=== PATIENT | female | born 1950 ===

== ENCOUNTER 2017-06-18 05:55 | Day surgery (SDC) | payer MEDICARE, OTHER ==
[~2017-06-18 05:55] MED LIST: ANCEF/STERILE WATER 2 GM/20 ML IV NR
[2017-06-18] MEDS ORDERED: LACTATED RINGERS 1,000 ML IV SCH (06:00)
[2017-06-18] MEDS ORDERED: VERSED IV NR (06:00)
[2017-06-18] MEDS ORDERED: PEPCID IV NR (06:00)
[2017-06-18] MEDS ORDERED: NACL BACTERIOSTATIC INFILTRATI ONE (06:39)
[2017-06-18] MEDS ORDERED: ADRENALIN IV ONE ×2 (06:39→08:18)
[2017-06-18] MEDS ORDERED: ZOFRAN IV PRN (07:13)
[2017-06-18] MEDS ORDERED: DILAUDID IV PRN (07:13)
[2017-06-18] MEDS ORDERED: XYLOCAINE 1% 20 mL INFILTRATI NR (07:15)
[2017-06-18] MEDS ORDERED: XYLOCAINE MPF 2% ONE (07:25)
[2017-06-18] MEDS ORDERED: DIPRIVAN 10 MG/ML IV ONE (07:26)
[2017-06-18] MEDS ORDERED: DECADRON ONE (07:33)
[2017-06-18] MEDS ORDERED: NACL P/F VIAL (10 ML) INFILTRATI NR (08:00)
[2017-06-18] MEDS ORDERED: MARCAINE 0.5% INFILTRATI NR (08:00)
[2017-06-18] MEDS ORDERED: TRANSDERM-SCOP TD ONE (08:08)
[2017-06-18] MEDS ORDERED: ePHEDrine SULFATE ONE (08:11)
[2017-06-18] MEDS ORDERED: Vasostrict ONE (08:45)
--- NOTE | 2017-06-18 09:02 | Anesthesia Consultation ---
Anesthesia Consult and Med Hx Date of service: 06/18/17 - Airway Anesthetic Teeth Evaluation: Good ROM Head & Neck: Adequate Mental/Hyoid Distance: Adequate Mallampati Class: Class III Intubation Access Assessment: Probably Good - Pulmonary Exam CTA: Yes - Cardiac Exam Cardiac Exam: RRR - Pre-Operative Health Status ASA Pre-Surgery Classification: ASA3 Proposed Anesthetic Plan: General Nerve Block: IS - Pulmonary Hx Smoking: Yes (STOPPED 1983 , 1 PPD X 10 YRS) Hx Sleep Apnea: No ([facility] PRE SCREEN HIGH RISK) - Cardiovascular System Hx Hypertension: Yes (X 10 YRS) - Endocrine Hx Hypothyroidism: (ON DAILY MEDS) - Other Systems Hx Alcohol Use: Yes (2-3 DRINKS PER DAY) Hx Cancer: No
--- NOTE | 2017-06-18 09:02 | Anesthesia Day of Surgery ---
Anesthesia Day of Surgery - Day of Surgery Patient Examined: Yes Patient H&P Reviewed: Yes Patient is NPO: Yes
--- NOTE | 2017-06-18 10:27 | Short Stay Summary ---
Short Stay Documentation Date of service: 06/18/17 - History H&P: obtained from office - Allergies and Medications Current Medications: Allergies No Known Allergies Allergy (Verified 06/12/17 15:27) Home Medications Medication Instructions Recorded Confirmed Last Taken Type Hydrochlorothiazide [HCTZ] 25 mg PO QDAY 06/12/17 06/18/17 06/17/17 History Levothyroxine [Synthroid] 100 mcg PO QAM 06/12/17 06/12/17 06/18/17 04:45 History Losartan [Cozaar] 50 mg PO QDAY 06/12/17 06/12/17 06/18/17 04:45 History Active Medications Bupivacaine HCl (Marcaine 0.5%) 20 ml INFILTRATI PREOP NR Stop: 06/18/17 11:00 Cefazolin Sodium (Ancef/Sterile Water 2 Gm/20 Ml) 2 gm IV PREOP NR Stop: 06/18/17 23:59 Famotidine (Pepcid) 20 mg IV PREOP NR Stop: 06/18/17 23:59 Last Admin: 06/18/17 07:01 Dose: 20 mg Hydromorphone HCl (Dilaudid) 0.5 mg IV Q10MIN PRN PRN Reason: Pain , Severe (7-10) Stop: 06/18/17 16:00 Lactated Ringer's (Lactated Ringers) 1,000 mls @ 100 mls/hr IV DIRECT KERRIE Last Admin: 06/18/17 06:50 Dose: 100 mls/hr Lidocaine (Xylocaine 1% 20 Ml) 10 ml INFILTRATI PREOP NR Stop: 06/18/17 13:00 Midazolam HCl (Versed) 2 mg IV PREOP NR Stop: 06/18/17 23:59 Last Admin: 06/18/17 07:21 Dose: 2 mg Sodium Chloride (Nacl P/F Vial (10 Ml)) 1 ml INFILTRATI PREOP NR Stop: 06/18/17 12:00 - Brief post op/procedure progress note Date of procedure: 06/18/17 Pre-op diagnosis: right shoulder pain acromioclavicular joint arthritis, rotator cuff tear Post-op diagnosis: other (persistent right shoulder pain, acromioclavicular joint arthritis, massive rotator cuff tear, extensive subacromial bursitis, degenerative wear anterior and superior labrum biceps rupture) Procedure: right shoulder arthroscopy subacromial decompression, distal clavicle excision, biceps tenotomy, debriedement of extensive subacromial bursitis, debriedement degenerative wear of anterior and superior labrum, arthroscopic repair massive rotator cuff tear Anesthesia: GETA Findings: as above Surgeon: BRIAN WOODRUFF Estimated blood loss: none Pathology: none Condition: stable - Hospital course Hospital course: no periopearative complications - Disposition Condition at discharge: Good Disposition: DC-01 TO HOME OR SELFCARE Short Stay Discharge Plan Follow up with: AWA ARTHUR MD [Primary Care Provider] - 7 Days
[2017-06-18 12:52] VITALS: BP 99/51
--- NOTE | 2017-06-18 13:38 | Operative Report ---
PREOPERATIVE DIAGNOSES: Persistent right shoulder pain, acromioclavicular joint arthritis, rotator cuff tear. POSTOPERATIVE DIAGNOSES: Persistent right shoulder pain, advanced acromioclavicular joint arthritic change with type 3 acromion causing severe impingement upon the rotator cuff, full thickness long head of the biceps tendon tear, degenerative wear and tearing of the anterior and superior labrum, mild grade 1 articular cartilage loss central aspect of the glenoid as well as central aspect of the humeral head, massive tearing of the rotator cuff involving both the supraspinatus and infraspinatus tendons with retraction as well as extensive subacromial bursitis. PROCEDURE: Right shoulder arthroscopy, subacromial decompression, distal clavicle excision, biceps tenotomy, debridement of degenerative wear and tearing of the anterior and superior labrum, debridement of extensive subacromial bursitis, arthroscopic repair of a massive rotator cuff tear involving both the supraspinatus as well as infraspinatus tendons. SURGEON: Ronnie Dover MD. GRAIN PACKER: None. ANESTHESIA: General. PREOPERATIVE ANTIBIOTICS: Ancef 2 grams IV within 1 hour of skin incision. DVT prophylaxis open toe, thigh high compression stockings and SCD pumps to bilateral lower extremities. OPERATIVE INSTRUMENTATION: Five metallic Opus rotator cuff anchors with corresponding #2 Cobraided sutures. OPERATIVE COMPLICATIONS: None. OPERATIVE HISTORY AND PHYSICAL: This is a 66-year-old female, who has had persistent progressive worsening right shoulder pain. The pain markedly limits her day-to-day activities. It has failed to improve despite extensive nonoperative treatment. MRI scan was performed, which was positive for acromioclavicular joint arthritis. It was a large rotator cuff tear as well as tearing of the superior labrum. The patient's MRI findings and diagnosis were discussed at length. After making sure the patient understood her diagnosis and all her questions were answered. We then discussed treatment alternatives of surgical and nonsurgical including risks and benefits of both. After a long lengthy discussion, the patient opted to proceed with operative intervention. This will entail a right shoulder arthroscopy, subacromial decompression, distal clavicle excision, arthroscopic possible open rotator cuff repair, possible labral repair and surgery as indicated. The risks of which were discussed to include but not exclusive of infection, blood loss, nerve damage, loss of range of motion and persistent pain. Again, the patient understood all of her questions were answered. She wished to proceed with operative intervention. OPERATIVE PROCEDURE: The patient was seen in the preoperative holding room area at which point informed consent was reviewed and appropriate right upper extremity was identified and then marked. Anesthesia then performed an interscalene block in the right upper extremity. After confirmation of adequate anesthesia of the right upper extremity the patient was then brought back to the operating room, placed supine on a standard operating room table with the beach chair positioner already in place. General anesthesia was then administered and an endotracheal tube was inserted. After confirmation of adequate general anesthesia was administered and placed endotracheal tube. We then made sure that all bony prominences were well padded that there were wrinkles in the compression stockings on bilateral lower extremities and SCD pumps were applied to bilateral lower extremities. The patient was then sat in the beach chair position using the beach chair positioner, which was already in place and the head was secured in nice neutral position. A pillow was placed beneath the posterior aspect of bilateral thighs, placed in slight flexion at the hips and knees make sure the popliteal fossa was free and clear. The well left arm was secured in a neutral position of the patient's side with the well arm lopez. The right upper extremity was then examined under anesthesia. The patient was seen to have full range of motion. There was no evidence of instability. Following examination under anesthesia, the right upper extremity was then prepped and draped in the usual sterile fashion. After prepping and draping, a timeout was called and appropriate right upper extremity was identified, which again had been marked in the preoperative holding area. We began the procedure by first making a standard posterior portal with a 15-blade. Once the port was established, a cannula with blunt trocar was inserted to the intra-articular aspect of the glenohumeral joint. This went without difficulty or damage to articular cartilage. Once in place, arthroscopic camera immediately placed in anterior to the shoulder joint was established anterior portal by first inserting #18 spinal needle between the subscap and biceps tendon under direct arthroscopic visualization. It was confirmed to be in appropriate position. A 15-blade was then used to establish an anterior portal. Once the portal was established blunt trocar was inserted, wide new portal site. Following that, an arthroscopic probe we began a diagnostic arthroscopy in the anterior aspect of the shoulder joint where the patient was seen to have degenerative wear and tearing of the anterior and superior labrum. This was gently debrided using a 4.0 meniscal shaver getting down to a nice smooth stable healthy remaining border. Inspection of the long head of the biceps tendon showed to be partial tear involving approximately 90% of the width of the tendon. This was irreparable. We performed a biceps tenotomy in standard fashion. Inspection of the subscapularis tendon showed to be intact and stable and probe. Rotator cuff showed to be massive tearing of both the supra as well as infraspinatus tendons with retraction as well as atrophic changes of the edges of the rotator cuff tendon. There was normal bare area without Hill-Sachs lesion. There were no loose bodies in the axillary recess. Following this, arthroscopic instruments were removed from the glenohumeral joint and then placed in subacromial space. Once in the subacromial space saw there was severe extensive subacromial bursitis. There was degenerative change of the acromioclavicular joint with type 2/3 acromion causing severe impingement in the area where the rotator cuff would normally be seated. The soft tissue was removed from the surface of the acromion using 4.0 hooded barrel bur, we carried a subacromial decompression in standard fashion from inferior to superior and posterior cuts not to leave any residual anterior hook. We turned our attention to the distal clavicle, which was also seen to be arthritic and performed a distal clavicle excision to a depth of approximately 6 mm using 4.0 hooded barrel bur. Once this was completed, we used a series of rasps, 4.0 meniscal shaver to remove the soft tissue from the rotator cuff footprint. Once this had been completed, using a series of basket punches and 4.0 meniscal shaver to debride the atrophic edge of the rotator cuff tendon. We then took our time and meticulously released the rotator cuff tear and once this was completed, we were then easily able to pull the rotator cuff back down the rotator cuff footprint. Once this was seen to be accomplished, we then passed five #2 Cobraided sutures in a horizontal mattress type fashion using the open suture passer and then tapped by hand and then inserted 5 Mitek opus rotator cuff anchors using these to anatomic repair of the rotator cuff back down to the rotator cuff footprint. Once this was completed, the arm was placed through full range of motion with good excellent stability of the repair. There was no impingement of the rotator cuff undersurface of the acromion or the distal clavicle. Once this was completed, it was clipped turned off and showed good hemostasis. Once this was confirmed with fluoroscopy subacromial space using the arthroscopic cannula was arthroscopic instrumentation was removed. The 3 portal sites were closed with 3-0 nylon in simple fashion. Adaptic, 4 x 4, ABD, Prim[place] dressing, small abduction sling was applied. The patient was sat down in beech chair in supine position, was awakened from general anesthesia without complications and taken to recovery room in stable condition. Standard postop was written. JOB# [id number] ANDREA/YARED
== END 2017-06-18 12:57 | disposition home or self-care (01) ==
LOC: OR 05:55
PROVIDERS: ATTEND Orthopaedic Surgery
DX: S46.011A Strain of muscle(s) and tendon(s) of the rotator cuff of right shoulder, initial encounter (principal); S43.491A Other sprain of right shoulder joint, initial encounter; S46.111A Strain of muscle, fascia and tendon of long head of biceps, right arm, initial encounter; M19.011 Primary osteoarthritis, right shoulder; M75.41 Impingement syndrome of right shoulder; M75.51 Bursitis of right shoulder; I10 Essential (primary) hypertension; E03.9 Hypothyroidism, unspecified; X58.XXXA Exposure to other specified factors, initial encounter; Y93.89 Activity, other specified; Y92.89 Other specified places as the place of occurrence of the external cause; Y99.8 Other external cause status; Z87.891 Personal history of nicotine dependence
CPT/HCPCS: 29823; 29824; 29826; 29827; C1713; J0171; J0690; J1100; J2250; J2704; J7120; L1830